=== PATIENT | male | born 1965 | race Caucasian/White ===

== ENCOUNTER 2018-06-01 08:18 | Day surgery (SDC) | payer BC ==
[2018-05-28 10:55] VITALS: BMI 27.3
[2018-06-01] MEDS ORDERED: PROPOFOL 20 ML ONE ×2 (11:05)
[2018-06-01] MEDS ORDERED: MIDAZOLAM HCL 2 MG/2 ML SINGLE DOSE VIAL ONE (11:05)
[2018-06-01 11:39] VITALS: TEMP 98.2
[2018-06-01 11:58] VITALS: BP 126/95; PULSE 87
== END 2018-06-01 12:00 | disposition home or self-care (01) ==
LOC: FASU-ENDO 08:18
PROVIDERS: ATTEND Internal Medicine Gastroenterology
PROC: 0DJD8ZZ Inspection of Lower Intestinal Tract, Via Natural or Artificial Opening Endoscopic (ICD-10-PCS; principal; 2018-06-01 11:12)
DX: Z12.11 Encounter for screening for malignant neoplasm of colon (principal)